=== PATIENT | male | born 1960 | race Caucasian/White ===

== ENCOUNTER 2021-05-09 16:04 | Observation (INO) | payer OTHER ==
[~2021-05-09] VITALS: Ht 180.3 cm; Wt 63.6 kg
[2021-05-09 16:25] LABS: HEMATOCRIT 49.9 % (42.0-52.0); HEMOGLOBIN 16.1 g/dl (13.5-18.0); MEAN CELL VOLUME 93 fl (80.0-100.0); MEAN CORPUSCULAR HEMOGLOBIN 30 pg (27-31); MEAN CORPUSCULAR HGB CONC 32 g/dl (33.0-37.0); MEAN PLATELET VOLUME 10.5 fl (7.4-10.4); PLATELET COUNT 247 K/mm3 (130-400); RED BLOOD COUNT 5.38 M/mm3 (4.20-5.60); REDCELL DISTRIBUTION WIDTH-CV 14.3 % (11.5-14.5)
[2021-05-09 16:38] LABS: PROTHROMBIN TIME 11.3 SECONDS (9.7-12.8)
[2021-05-09 16:39] LABS: ALANINE AMINOTRANSFERASE 22 U/L (0-55); ALBUMIN 3.8 gm/dL (3.4-4.8); ALKALINE PHOSPHATASE 80 U/L (40-150); ANION GAP 10 mmol/L (7-16); AST,SGOT 18 U/L (5-34); BILIRUBIN,TOTAL 0.5 mg/dL (0.2-1.2); BLOOD UREA NITROGEN 12 mg/dL (8-26); CALCIUM 8.7 mg/dL (8.4-10.2); CARBON DIOXIDE 32 mmol/L (23-31); CHLORIDE 100 mmol/L (98-107); CREATININE, serum 0.89 mg/dL (0.72-1.25); GLUCOSE 184 mg/dL (70-99); POTASSIUM 4.5 mmol/L (3.5-4.5); SODIUM 142 mmol/L (136-145); TOTAL PROTEIN 6.8 gm/dL (6.2-8.1)
[2021-05-09 16:45] LABS: TROPONIN-I < 0.010 ng/mL (0.00-0.033)
[2021-05-09 17:20] LABS: BAND 1 % (0-10); LYMPHOCYTE 7 % (20.0-51.0); NEUTROPHILS 91 % (42.0-75.2); PLATELET ESTIMATE NORMAL (NORMAL)
[2021-05-09 17:44] LABS: ARTERIAL BLD GAS O2 SATURATION 95.2 % (92-100); ARTERIAL BLD GAS TCO2 CT 35.8; ARTERIAL BLOOD GAS BASE EXCESS 5.8 (-2-2); ARTERIAL BLOOD GAS HCO3 33.8 meq/L (22-26); ARTERIAL BLOOD GAS PCO2 63.1 mmHg (35-45); ARTERIAL BLOOD GAS PO2 75.8 mmHg (80-100); ARTERIAL BLOOD GAS pH 7.35 (7.35-7.45)
[2021-05-09] MEDS ORDERED: PREDNISONE20 MG PO (18:42)
[2021-05-09] MEDS ORDERED: PROAIR HFA0.09 MG/AC IH (18:43)
[2021-05-09] MEDS ORDERED: FLOVENT 44MCG I13 GM IH (18:44)
[2021-05-09 19:18] LABS: HEMATOCRIT 46.8 % (42.0-52.0); HEMOGLOBIN 14.6 g/dl (13.5-18.0); MEAN CELL VOLUME 95 fl (80.0-100.0); MEAN CORPUSCULAR HEMOGLOBIN 30 pg (27-31); MEAN CORPUSCULAR HGB CONC 31 g/dl (33.0-37.0); MEAN PLATELET VOLUME 10.8 fl (7.4-10.4); PLATELET COUNT 219 K/mm3 (130-400); RED BLOOD COUNT 4.92 M/mm3 (4.20-5.60); REDCELL DISTRIBUTION WIDTH-CV 14.4 % (11.5-14.5)
[2021-05-09 22:34] VITALS: BP 111/75; PULSE 66; TEMP 98
--- NOTE | 2021-05-09 22:47 | NUR ---
PT ARRIVES TO MEDICAL FLOOR AT ABOUT 2210 TO ROOM 357, VIA BED, PT INDEPENDENT, A/OX4, PLEASANT AND COOPERATIVE. HEP GTT INFUSING AT 7.6CC/HR TO LFA IV NEXT HEPXA AT 2340 ORDER INPUT BY ED STAFF. TELE ON. PT CURRENTLY DENIES CHEST PAIN,N,V,D, CONSTIPATION. PT REPORTS SOA WITH EXERTION. 02 3.5L NC WITH SATURATIONS ABOVE 95 PERCENT. ASSESMENT COMPLETE. MED REC COMPLETE. HOSPITAL POLICY REVIEWED. PT VERBALIZES UNDERSTANDING. POC D/W PT. PT VERBALIZES UNDERSTANDING. ALL QUESTIONS/CONCERNS REVIEWED. ALL NEEDS MET AT THIS TIME. CALL LIGHT WITHIN REACH.
[2021-05-10] VITALS (17 sets, daily range): BP systolic 99–148; BP diastolic 50–80; PULSE 66–79; TEMP 98.1–98.6
--- NOTE | 2021-05-10 01:05 | NUR ---
PT HEPXA BACK AT 0.27, GOAL, NO CHANGE, NEXT HEPXA AT 0540 THIS AM. HEPXA CONTINUES TO INFUSE AT 7.6CC/HR. TO LFA.
--- NOTE | 2021-05-10 05:47 | NUR ---
PT HAD UNEVENTFUL NIGHT THIS SHIFT, HEP GTT CONTINES TO INFUSE AT 7.6CC/HR TO LW IV. PT CONTINES TO DENY CHEST PAIN, PALPITATIONS, N,V. PT SOA ON EXERTION. ALL NEEDS MET THIS SHIFT. HEPXA PENDING THIS AM.
[2021-05-10 06:37] LABS: BASO % 0.2 % (0.0-2.0); GRAN # 4.9 K/mm3 (1.4-6.5); GRAN % 87.1 % (42.2-75.2); HEMATOCRIT 44.6 % (42.0-52.0); HEMOGLOBIN 14.3 g/dl (13.5-18.0); LYMPH # 0.6 K/mm3 (1.2-3.4); LYMPH % 9.7 % (20.0-51.0); MEAN CELL VOLUME 94 fl (80.0-100.0); MEAN CORPUSCULAR HEMOGLOBIN 30 pg (27-31); MEAN CORPUSCULAR HGB CONC 32 g/dl (33.0-37.0); MEAN PLATELET VOLUME 11.3 fl (7.4-10.4); MONO # 0.1 K/mm3 (0.1-0.6); MONO % 2.5 % (1.7-9.3); PLATELET COUNT 217 K/mm3 (130-400); RED BLOOD COUNT 4.77 M/mm3 (4.20-5.60)
[2021-05-10 06:49] LABS: CALCIUM 8.5 mg/dL (8.4-10.2); CHOLESTEROL RISK RATIO 2.5; CREATININE, serum 0.67 mg/dL (0.72-1.25); MAGNESIUM 2.1 mg/dL (1.6-2.6); POTASSIUM 4.5 mmol/L (3.5-4.5)
--- NOTE | 2021-05-10 08:41 | NUR ---
PT RESTING IN BED. MORNING MEDICATIONS GIVEN. SHIFT ASSESSMENT COMPLETED. HEPARIN GTT INFUSING AT 9ML/HR. PT DENIES ANY CHEST PAIN OR SOB AT THIS TIME. UPDATED PT ON POC. PT HAS BEEN NPO SINCE MIDNIGHT. DENIES ANY NEEDS AT THIS TIME. WILL CONTINUE TO MONITOR.
--- NOTE | 2021-05-10 10:02 | NUR ---
Transitional Care Nurse met with patient to discuss discharge planning. Patient is from [place] but is living here in [place] for a work assignment with [employer]. Patient lives alone and he receives primary care in [place] at the [facility]. Patient wears night time oxygen supplied from the [facility]. Patient states he has a concentrator at home, but no portable tanks because he did not think it was safe to travel with them. Patient does not use any other DME and reports he is independent with ADLS. Patient states his mother, Shweta (ph#[phone]) is his DPOA-HC. Patient is and has five children: Liya, Corey, Nam, Edgard, and Ritesh. Patient states he plans to return to his place in [place] at time of discharge. Patient states he originally planned to stay here until the end of the summer, but with this hospitalization, he may return to [place] sooner than that. Patient states he has his car here and plans to drive back to [place] at some point. Discharge Plan: Home
--- NOTE | 2021-05-10 10:47 | NUR ---
First visit from the weed burner. No needs right now.
--- NOTE | 2021-05-10 12:59 | NUR ---
See merge for all pre/intra/post procedure medication, assessments, and interventions.
--- NOTE | 2021-05-10 17:54 | NUR ---
PT SITTING UP IN BED. CURRENTLY ON 2L VIA NC. STILL ON POSTOP VITALS, VSS. DENIES ANY PAIN. TR BAND WITH 6CC AND WRIST RESTRAINT IN PLACE. WILL CONTINUE TO MONITOR.
[2021-05-11] VITALS: BP 121/81; PULSE 71; TEMP 98.2
[2021-05-11 04:20] VITALS: BP 126/64; PULSE 66; TEMP 97.6
--- NOTE | 2021-05-11 05:43 | NUR ---
ASSESSMENT COMPLETE FOR THIS SHIFT. PT RESTING IN BED NAPPING. PT DENIED PAIN, PALPITATIONS, SOB, N,V,D, OR DIZZINESS. RADIAL SITE SHOWS NO SIGNS OF BLEEDING. SITE SOFT TO TOUCH. PT ASKED FOR AND RECIEVED A SANDWICH BOX LAST NIGHT. PT EXPRESSED NO OTHER NEEDS AT THIS TIME. CALL LIGHT WITHIN REACH.
[2021-05-11 07:34] VITALS: BP 128/65; PULSE 84; TEMP 98.1
--- NOTE | 2021-05-11 08:59 | NUR ---
PT RESTING IN BED. MORNING MEDICATIONS GIVEN. SHIFT ASSESSMENT COMPLETED. PT DENIES ANY PAIN OR NEEDS. WRIST RESTRAINT REMOVED AT THIS TIME. R RADIAL SITE HAS BANDAID C/D/I, SITE IS SOFT WITH NO HEMATOMA, 2+ BOUNDING PULSE. WILL CONTINUE TO MONITOR.
[2021-05-11 11:28] VITALS: BP 124/68; PULSE 70; TEMP 98.8
[2021-05-11] MEDS ORDERED: PROTONIX 40MG T40 MG PO (11:39)
[2021-05-11] MEDS ORDERED: MOTRIN 600600 MG/TAB PO (11:41)
[2021-05-11] MEDS ORDERED: ASPIRIN 81M81 MG/TA2 PO (11:43)
--- NOTE | 2021-05-11 12:13 | NUR ---
PT IV INFILTRATED WITH AZITHROMYCIN INFUSING. MEDICATION STOPPED AND IV TAKEN OUT. PHARMACY CONTACTED AND INSTUCTED TO KEEP ARM ELEVATED. CONTACTED CORDELL BRISENO AND SHE IS PUTTING IN A ONE TIME ORAL DOSE OF MEDICATION. CONTINUING TO MONITOR.
[2021-05-11 15:50] VITALS: BP 116/60; PULSE 79; TEMP 97.6
--- NOTE | 2021-05-11 16:04 | NUR ---
HELENA contacted BRISA Hernández at the [facility] for help with this patient's oxygen. Freda directs me to call the patient's PCP Dr. Cherry ([phone]) at the [facility] to establish a portable oxygen concentrator. Spoke with the statement distribution clerk at Dr. Cherry' office Randi ([phone]) and faxed the patient's clinical documentation to their office (f#[phone]) Per Randi, the patient's oxygen will need to be set up through the [facility] in [place] and provided me the P# [phone]/ f# [phone] for the CCT directing me to contact them. Contact made with the CCT in [place], [place] who states that they have nothing to do with this patient's oxygen needs and that it would have to go through his PCP's office at the [place]. Spoke again with Randi notifying her of what the CCT states and has Dr. Cherry' RN Vish call me. RN reports that after speaking with the office in [place] it was determined that the closest [facility] facility near the should be the one to supply a portable concentrator. Phone call also received from a Kalie Gusman at the [facility] who mirrors what Vish states, that the [facility] should be the ones to supply the patient with his new oxygen. Phone call made to the [facility] and spoke with Addison, Home Oxygen Coordinator. Per Addison, the [facility] is not able to provide oxygen to this patient because he is not established at that facility. Patient has seen the [facility] prior to moving to [place] and has since been discharged along with all orders from that facility. His oxygen needs have to be managed through his PCP's office. Addison reports that the [facility] will have to establish a local vendor that they can pay to supply the patient's oxygen. Per Amanda at [facility], they are not contracted with the [facility]. [facility] contact who states that they would have to submit for an insurance authorization prior to providing the patient with oxygen.
[2021-05-11 20:52] VITALS: BP 117/71; PULSE 85; TEMP 98.3
[2021-05-12 00:54] VITALS: BP 125/75; PULSE 85; TEMP 98.1
[2021-05-12 04:29] VITALS: BP 129/75; PULSE 66; TEMP 98.4
[2021-05-12 05:31] LABS: BASO % 0.1 % (0.0-2.0); GRAN # 12.1 K/mm3 (1.4-6.5); GRAN % 85.1 % (42.2-75.2); HEMATOCRIT 44.5 % (42.0-52.0); HEMOGLOBIN 14.5 g/dl (13.5-18.0); LYMPH # 0.9 K/mm3 (1.2-3.4); LYMPH % 6.5 % (20.0-51.0); MEAN CELL VOLUME 94 fl (80.0-100.0); MEAN CORPUSCULAR HEMOGLOBIN 31 pg (27-31); MEAN CORPUSCULAR HGB CONC 33 g/dl (33.0-37.0); MEAN PLATELET VOLUME 11.1 fl (7.4-10.4); MONO # 1.1 K/mm3 (0.1-0.6); MONO % 7.7 % (1.7-9.3); PLATELET COUNT 221 K/mm3 (130-400); RED BLOOD COUNT 4.76 M/mm3 (4.20-5.60); REDCELL DISTRIBUTION WIDTH-CV 14.3 % (11.5-14.5)
[2021-05-12 05:43] LABS: CALCIUM 8.2 mg/dL (8.4-10.2); CREATININE, serum 0.55 mg/dL (0.72-1.25); POTASSIUM 4.1 mmol/L (3.5-4.5)
--- NOTE | 2021-05-12 06:00 | NUR ---
ASSESSMENT COMPLETE FOR THIS SHIFT. PT RESTING IN BED, WORKING ON HIS LAPTOP. PT DENIED PAIN, PALPITATIONS, SOB, N,V,D OR DIZZINESS. PT HAD AN OTHERWISE UNEVENFUL NIGHT. PT EXPRESSED NO OTHER NEEDS AT THIS TIME. CALL LIGHT WITHIN REACH.
[2021-05-12 07:46] VITALS: BP 123/75; PULSE 75; TEMP 97.8
--- NOTE | 2021-05-12 08:59 | NUR ---
SW contacted by [facility] this morning. They are unable to provide the patient with a portable concentrator due to the [facility]'s regulations of only being able to have either a home concentrator or a portable, but the patient cannot have both. Per Neida at [facility], they are able to bring the patient a loaner tank to get him home which he will have to return and at that point he will need to contact the [facility] to work out his oxygen needs with his PCP. Patient's RN notified of the above along with CORDELL Casarez.
--- NOTE | 2021-05-12 09:10 | NUR ---
PATIENT DOING WELL THIS MORNING. DENIES SHORTNESS OF BREATH AT THIS TIME. ON 2L VIA NC WHICH IS BASELINE. TO DC HOME TODAY WITH PORTABLE OXYGEN FROM [facility]
== END 2021-05-12 09:14 | disposition home or self-care (01) ==
LOC: COL.ER 16:04 → MEDICAL 19:29
PROVIDERS: Family Medicine; Physician Assistant; Student in an Organized Health Care Education/Training Program; ADMIT Internal Medicine
DX: R07.89 Other chest pain (principal); J96.22 Acute and chronic respiratory failure with hypercapnia; J96.21 Acute and chronic respiratory failure with hypoxia; J44.9 Chronic obstructive pulmonary disease, unspecified; R91.8 Other nonspecific abnormal finding of lung field; I20.0 Unstable angina; R73.9 Hyperglycemia, unspecified; I51.7 Cardiomegaly; Z20.822 Contact with and (suspected) exposure to COVID-19; F17.210 Nicotine dependence, cigarettes, uncomplicated; E44.0 Moderate protein-calorie malnutrition; I45.10 Unspecified right bundle-branch block; R63.4 Abnormal weight loss; Z68.1 Body mass index [BMI] 19.9 or less, adult; Z99.81 Dependence on supplemental oxygen; Z79.52 Long term (current) use of systemic steroids
CPT/HCPCS: 99233-AI; G0378; J0456; J1644; J2250; J2920; J2930; J3010; J7030; J7050; Q9967